=== PATIENT | female | born 1975 | race Caucasian/White ===

== ENCOUNTER → 2018-05-07 | Outpatient (CLI) | payer OTHER ==
[~2018-05-07] MED LIST: ALBU17AE23 IH; AMIL1TAB PO; AZIT-21 PO; CEFU500T5 PO; CODE118S2 PO; LISI5TAB PO; OMEG1CAP51 PO
--- NOTE | 2018-05-07 17:09 | Diagnostic Imaging Report ---
INDICATION: Bilateral breast lumps. COMPARISON: Comparison is made with prior mammogram from 05/19/2013. TECHNIQUE: Bilateral 2D and 3D diagnostic mammography was performed with computer-aided detection (CAD) system. FINDINGS: Scattered fibroglandular densities are identified bilaterally. BBs were placed at the areas of palpable abnormality in the right breast. This appears to be medial on the right. On the left, BB is noted inferior and slightly lateral as well as inner left breast. No underlying abnormalities are seen. Only fatty tissue is seen. No mass or malignant appearing microcalcifications are identified. The axillae are unremarkable. IMPRESSION: No mammographic features suspicious for malignancy are identified. Even so, sonographic interrogation of the areas of palpable abnormality in both breasts is recommended. ACR BI-RADS Category 0: Incomplete. (Needs additional imaging evaluation). Result letter will be mailed to the patient. Note: At least 10% of breast cancer is not imaged by mammography. Dictated by: Dictated on workstation # [id number]
--- NOTE | 2018-05-07 17:15 | Diagnostic Imaging Report ---
INDICATION: Bilateral breast lumps. FINDINGS: Sonographic interrogation of the area of lumps was performed in both breasts. This corresponds to the 7-8 o'clock location and 4-5 o'clock location of the left breast and the 3 o'clock location of the right breast. No sonographic abnormality is seen. No solid or cystic mass is identified at areas of palpable abnormality. IMPRESSION: No sonographic abnormality is seen. Continued close clinical and self breast exam is recommended to confirm stability of the palpable abnormalities. ACR BI-RADS Category 1: Negative. Dictated by: Dictated on workstation # [id number]
== END ==
LOC: RAD 12:30
PROVIDERS: ATTEND Family Medicine
DX: N63.20 Unspecified lump in the left breast, unspecified quadrant (principal); N63.10 Unspecified lump in the right breast, unspecified quadrant
CPT/HCPCS: 76642; 77066

== ENCOUNTER → 2018-10-16 | Outpatient (CLI) | payer OTHER ==
--- NOTE | 2018-10-16 20:51 | Diagnostic Imaging Report ---
INDICATION: Bilateral breast pain and tenderness. TECHNIQUE: Sonographic interrogation of all 4 quadrants of both breasts as well as the retroareolar regions and axillary regions was performed. FINDINGS: No sonographic abnormality is seen in either breast. No solid or cystic mass is detected. IMPRESSION: No sonographic abnormality is seen. Clinical followup is recommended. If the patient develops a discrete palpable mass, diagnostic mammography would be recommended. ACR BI-RADS Category 1: Negative. Dictated by: Dictated on workstation # [id number]
== END ==
LOC: RAD 09:14
PROVIDERS: ATTEND Nurse Practitioner Family
DX: N64.4 Mastodynia (principal)